=== PATIENT | male | born 1965 | race Caucasian/White ===

== ENCOUNTER 2016-09-07 10:20 | Emergency (ER) | payer OTHER ==
[~2016-09-07] VITALS: Ht 177.8 cm; Wt 104.3 kg
--- NOTE | 2016-09-07 10:28 | ED NECK/BACK PAIN COMPLAINT ---
History of Present Illness General Chief Complaint: Low Back Pain/Injury Stated Complaint: LOWER LEFT AND SIDE BACK PAIN, Source: patient, old records Exam Limitations: no limitations Vital Signs & Intake/Output Vital Signs & Intake/Output Vital Signs Date Time Temp Pulse Resp B/P Pulse O2 O2 Flow FiO2 Ox Delivery Rate 09/07 1200 96.2 59 19 174/106 96 Room Air 09/07 1054 Room Air 09/07 1025 96.4 69 20 159/106 97 Room Air Allergies Coded Allergies: NO KNOWN ALLERGIES (09/07/16) Reconcile Medications Cyclobenzaprine HCl 5 MG TABLET 1 TAB PO TIDPRN PRN PAIN Triage Note: C/O LEFT LOWER BACK PAIN RADIAITNG TO LEFT HIP AND ABDOMEN X 4 DAYS. WORSE WHEN SITTING. DENIES RECENT FALL, OR LIFTING INJURY. DENIES URINARY SXS, NAUSEA OR VOMITING. Triage Nurses Notes Reviewed? yes Onset: Abrupt Duration: day(s): (4), constant Timing: recent history Quality/Severity: moderate, ACHING Location: paraspinous muscles Radiation: LLQ Method of Injury: unknown Loss of Consciousness: no loss of consciousness Modifying Factors: rest Associated Symptoms: DIARRHEA HPI: 51-year-old male with history of hypothyroid hypertension presents emergency room complaining of a four-day history of left lower back pain that radiates to the left lower quadrant. He states his symptoms are worse with rest and changing positions, and denies anyspecific injury or trauma. He denies any heavy lifting or fall. Patient states that he has had loose bowel movements over the past few days as well however denies any black or bloody stools. He denies any urinary symptoms no dysuria urgency frequency hematuria. No scrotal pain or swelling. He denies any fever chills nausea or vomiting. No history of similar episodes in the past. No urinary or bowel incontinence, no numbness or tingling in his legs. He is been using Lidoderm patches without improvement, and he takes methadone daily without improvement. (COLLEEN GOMEZ) Past History Travel History Traveled to [place] past 21 day No Medical History Any Pertinent Medical History? see below for history Cardiovascular: hypertension Gastrointestinal: cirrhosis, hepatitis b/c Endocrine: hypothyroidism Surgical History Surgical History: non-contributory Psychosocial History What is your primary language Lithuanian Family History Hx Contributory? No (COLLEEN GOMEZ) Review of Systems Review of Systems Constitutional: Reports: see HPI. All Other Systems: Reviewed and Negative Comments Review of systems: See HPI, All other systems negative. Constitutional, no chills no fever, no malaise HEENT: no sore throat no congestion Cardiovascular: No chest pain , no palpitation Skin, no rashes, no change in skin Respiratory: No dyspnea no cough no sputum GI: No nausea no vomiting, no diarrhea, : No dysuria No hematuria, no frequency, no discharge Muscle skeletal: No joint pain, no joint swelling, no back pain Neurologic: no headache Psych: No stress ,. Heme/endocrine: No bruising no bleeding Immunology: No lymphadenopathy (COLLEEN GOMEZ) Physical Exam Physical Exam General Appearance: well developed/nourished, no apparent distress, alert, awake Neck: normal inspection, supple, full range of motion Comments: Well-developed well-nourished person in no acute distress HEENT: Normal EENT exam; PERRL, EOMI, HEAD is atraumatic. moist mucous membranes. Neck: Supple, normal range of motion Back: Nontender, no CVA tenderness. Full range of motion Cardiovascular: Regular rate and rhythms no murmurs rub Respiratory: Chest nontender.There were no bony deformities, no asymmetry. No respiratory distress. Patient speaking in full complete sentences. Breath sounds clear to auscultation bilaterally: NO W/R/R Abdomen: Soft, nontender nondistended, no appreciable organomegaly. Normal bowel sounds. No rebound/guarding, No appreciable enlargement of the abdominal aorta, No ascites. Extremity: No edema, full range of motion of extremities, negative straight leg raise bilaterally normal and equal pulses bilaterally, 5 out of 5 strength noted to bilateral upper and lower extremities Neuro: Alert oriented x3, motor sensory normal, There were no obvious focal neurologic abnormalities. Skin: No appreciable rash on exposed skin, skin is warm and dry. Psych: Mood and affect is normal, memory and judgment is normal. (COLLEEN GOMEZ) Progress Differential Diagnosis: cauda equina syn, herniated disc, myofascial strain, pyelo/UTI, sciatica, spinal cord inj, T/L spine injury, ureterolithiasis, diverticulitis, hernia Plan of Care: Orders Procedure Date/time Status URINALYSIS 09/07 1041 Complete LIPASE 09/07 1041 Complete COMPREHENSIVE METABOLIC PANEL 09/07 1041 Complete CBC WITHOUT DIFFERENTIAL 09/07 1041 Complete AMYLASE 09/07 1041 Complete Laboratory Tests 09/07/16 1121: Urinalysis LIGHT H, Urine Color YEL, Urine Clarity CLEAR, Urine pH 6.0, Ur Specific Willcox 1.025, Urine Protein TRACE H, Urine Ketones NEG, Urine Nitrite NEG, Urine Bilirubin NEG, Urine Urobilinogen 0.2, Ur Leukocyte Esterase NEG, Ur Microscopic SEDIMENT EXAMINED, Urine RBC 1-3, Urine WBC RARE, Ur Epithelial Cells FEW, Granular Casts RARE H, Urine Mucus FEW, Urine Hemoglobin TRACE-LYSED H, Urine Glucose NEG 09/07/16 1047: Anion Gap 12, Estimated GFR > 60, BUN/Creatinine Ratio 10.0, Glucose 161 H, Calcium 9.0, Total Bilirubin 0.7, AST 246 H, ALT 190 H, Alkaline Phosphatase 245 H, Total Protein 7.4, Albumin 4.1, Globulin 3.3, Albumin/Globulin Ratio 1.2 , Amylase 39, Lipase 110, CBC w Diff MAN DIFF ORDERED, RBC 4.43 L, MCV 96.7 H, MCH 33.5 H, RDW 13.4, MPV 7.2 L, Gran % 59.0, Lymphocytes % 30.3, Monocytes % 7.1, Eosinophils % 2.0, Basophils % 1.6, Absolute Granulocytes 1.7, Absolute Lymphocytes 0.9 L, Absolute Monocytes 0.2, Absolute Eosinophils 0.1, Absolute Basophils 0, Platelet Estimate DECREASED, Stomatocytes 2+, PUBS MCHC 34.6 Labs ordered old records reviewed CAT scan, Toradol 30 mg IV ordered patient appears in no apparent distress 09/07/2016 11:34:15 AMI discussed with the patient at length all his lab results including his thrombocytopenia and elevated LFTs- however platelets have decreased since 2012 which at the time were 90,000, and lfts has increased since then. Patient is scheduled already to see his GI doctor in [place] on , I discussed with him at length his CT results and incidental findings. Patient is afebrile, discussed with him at length his CAT scan findings the patient has a known history of cirrhosis. Patient feels improved with Toradol. 09/07/2016 12:08:49 PM discussed with patient and his UA results he has an appointment already scheduled with his GI on advised he follow-up with his primary care physician and his doctor that manages his hepatitis this week as well, the patient feels comfortable with his plan is noted to be hypertensive and states he did not take his blood pressure medications this morning. Patient was offered these medications here which she declined stating he wants to go home he is feeling improved with the Toradol. I discussed with him need for close monitoring of his blood pressure at home with a home blood pressure cuff taking his medication as prescribed advised to return anytime sooner if he develops fever chills worsening pain despite medication or any other concerns I answered all their questions they feel comfortable with this plan cleared for discharge (SIERRA GIBSON,COLLEEN) Diagnostic Imaging: Viewed by Me: CT Scan. Discussed w/RAD: CT Scan. Radiology Impression: PATIENT: KIKO MACKAY PRESENT AGE: 51 PATIENT ACCOUNT NO: [id number] : 66 LOCATION: [facility] ORDERING PHYSICIAN: COLLEEN GIBSON SERVICE DATE: 09/07/16 EXAM TYPE: CAT - CT ABD & PELVIS W/O IV CONTRAS EXAMINATION: CT ABDOMEN AND PELVIS WITHOUT CONTRAST CLINICAL INFORMATION: Left lower quadrant and left lower back pain. Diarrhea. Evaluate for kidney stone or diverticulitis. COMPARISON: CT scan of the abdomen and pelvis dated 07/12/2013. TECHNIQUE: Multidetector volumetric imaging was performed from the superior aspect of the liver through the pubic symphysis. Sagittal and coronal reformatted images were obtained on the technologist workstation. DLP: 1110.95 mGy-cm. FINDINGS: LUNG BASES: The visualized lung bases are unremarkable. LIVER, GALLBLADDER, AND BILIARY TREE: The liver is enlarged, measuring 26 cm longitudinally and demonstrates a nodular surface contour, consistent with liver cirrhosis, unchanged from prior exam. Liver parenchyma is diffusely low in attenuation compared to the spleen, consistent with hepatic steatosis. No focal hepatic lesion on noncontrast imaging. No biliary ductal dilatation is present. The gallbladder is unremarkable with no evidence of radiopaque gallstones, gallbladder wall thickening, or obvious pericholecystic inflammatory changes. SPLEEN: Spleen is enlarged, measuring 17.6 cm longitudinally, unchanged. Spleen otherwise unremarkable. PANCREAS AND ADRENAL GLANDS: Unremarkable on noncontrast imaging. KIDNEYS AND URETERS: The kidneys are normal in size, shape, and attenuation. No hydronephrosis, hydroureter, or calculi seen. No perinephric stranding. BLADDER: Unremarkable. GASTROINTESTINAL TRACT: The small and large bowel are unremarkable. The appendix is unremarkable. ABDOMINAL WALL: Again seen is a moderate-sized fat-containing umbilical hernia, unchanged. LYMPH NODES, VASCULAR: There are multiple small subcentimeter sized lymph nodes seen in the periportal, peripancreatic, portacaval, aortocaval and para-aortic spaces. No suspicious abdominal or pelvic adenopathy is seen. Tiny perisplenic varices are noted. Abdominal aorta normal in caliber and unremarkable. PELVIC VISCERA: Unremarkable. OSSEOUS STRUCTURES: Bilateral pars defects are seen at L5 with grade 1 anterolistheses of L5 on S1 and severe associated degenerative disc disease with vacuum disc phenomenon, disc space narrowing and vertebral endplate sclerosis and spurring. Similar findings were seen previously. IMPRESSION: 1. No significant acute abnormality. Specifically, no evidence of nephrolithiasis or obstructive uropathy. No evidence of acute diverticulitis. 2. Prominent hepatosplenomegaly with cirrhotic appearance of liver, and small perisplenic varices and upper abdominal adenopathy, likely reactive. Similar findings were noted previously. 3. 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 DICTATED BY: BINTA FLORES MD DATE/TIME DICTATED:09/07/161101 ART HISTORIAN:ROCAEL DATE/TIME TRANSCRIBED:09/07/161101 CONFIDENTIAL, DO NOT COPY WITHOUT APPROPRIATE AUTHORIZATION. <Electronically signed in Other Vendor System> SIGNED BY: BINTA FLORES MD 09/07/16 1122 (COLLEEN GOMEZ) Departure Departure Time of Disposition: 1156 Disposition: HOME OR SELF CARE Condition: Stable Clinical Impression Primary Impression: Transaminitis Secondary Impressions: Hepatosplenomegaly, Liver cirrhosis, Spondylolysis, Thrombocytopenia Referrals: UNKNOWN Additional Instructions: FOLLOW UP WITH YOUR SCHOOL SPEECH LANGUAGE PATHOLOGIST AND LIVER THIS WEEK SCHEDULED. CONTINUE USING YOUR LIDODERM PATCHES, IBUPROFEN 800MG EVERY 8 HOURS. Departure Forms: Customer Survey General Discharge Information Prescriptions: Current Visit Scripts Cyclobenzaprine HCl 1 TAB PO TIDPRN PRN PAIN #12 TAB (COLLEEN GOMEZ) PA/EARTH BURNER Co-Sign Statement Statement: ED Attending supervision documentation- [] I saw and evaluated the patient. I have also reviewed all the pertinent lab results and diagnostic results. I agree with the findings and the plan of care as documented in the PA's/EARTH BURNER's documentation. [X] I have reviewed the ED Record and agree with the PA's/EARTH BURNER's documentation. [] Additions or exceptions (if any) to the PAs/EARTH BURNER's note and plan are summarized below: [] (KELSIE WANG,DAVID Dorsey)
[2016-09-07 11:06] LABS: ABSOLUTE BASOPHIL COUNT 0 /CUMM (0.0-0.2); ABSOLUTE EOSINOPHIL COUNT 0.1 /CUMM (0.0-0.7); ABSOLUTE GRANULOCYTE CT 1.7 /CUMM (1.4-6.5); ABSOLUTE LYMPH COUNT 0.9 /CUMM (1.2-3.4); ABSOLUTE MONOCYTE COUNT 0.2 /CUMM (0.10-0.60); BASOPHIL % 1.6 % (0.0-2.0); HEMATOCRIT 42.8 % (42-52); MEAN CORPUSCULAR HGB 33.5 PG (27.0-31.0); MEAN CORPUSCULAR HGB CONC 34.6 G/DL (33.0-37.0); MEAN CORPUSCULAR VOLUME 96.7 FL (80.0-94.0); MEAN PLATELET VOLUME 7.2 FL (7.4-10.4); PLATELET COUNT 78 /CUMM (130-400); RBC DISTRIBUTION WIDTH 13.4 % (11.5-14.5); RED BLOOD CELL CT 4.43 /CUMM (4.70-6.10); WHITE BLOOD CELL COUNT 2.9 /CUMM (4.8-10.8)
--- NOTE | 2016-09-07 11:22 | CT SCAN REPORT ---
EXAMINATION: CT ABDOMEN AND PELVIS WITHOUT CONTRAST CLINICAL INFORMATION: Left lower quadrant and left lower back pain. Diarrhea. Evaluate for kidney stone or diverticulitis. COMPARISON: CT scan of the abdomen and pelvis dated 07/12/2013. TECHNIQUE: Multidetector volumetric imaging was performed from the superior aspect of the liver through the pubic symphysis. Sagittal and coronal reformatted images were obtained on the technologist workstation. DLP: 1110.95 mGy-cm. FINDINGS: LUNG BASES: The visualized lung bases are unremarkable. LIVER, GALLBLADDER, AND BILIARY TREE: The liver is enlarged, measuring 26 cm longitudinally and demonstrates a nodular surface contour, consistent with liver cirrhosis, unchanged from prior exam. Liver parenchyma is diffusely low in attenuation compared to the spleen, consistent with hepatic steatosis. No focal hepatic lesion on noncontrast imaging. No biliary ductal dilatation is present. The gallbladder is unremarkable with no evidence of radiopaque gallstones, gallbladder wall thickening, or obvious pericholecystic inflammatory changes. SPLEEN: Spleen is enlarged, measuring 17.6 cm longitudinally, unchanged. Spleen otherwise unremarkable. PANCREAS AND ADRENAL GLANDS: Unremarkable on noncontrast imaging. KIDNEYS AND URETERS: The kidneys are normal in size, shape, and attenuation. No hydronephrosis, hydroureter, or calculi seen. No perinephric stranding. BLADDER: Unremarkable. GASTROINTESTINAL TRACT: The small and large bowel are unremarkable. The appendix is unremarkable. ABDOMINAL WALL: Again seen is a moderate-sized fat-containing umbilical hernia, unchanged. LYMPH NODES, VASCULAR: There are multiple small subcentimeter sized lymph nodes seen in the periportal, peripancreatic, portacaval, aortocaval and para-aortic spaces. No suspicious abdominal or pelvic adenopathy is seen. Tiny perisplenic varices are noted. Abdominal aorta normal in caliber and unremarkable. PELVIC VISCERA: Unremarkable. OSSEOUS STRUCTURES: Bilateral pars defects are seen at L5 with grade 1 anterolistheses of L5 on S1 and severe associated degenerative disc disease with vacuum disc phenomenon, disc space narrowing and vertebral endplate sclerosis and spurring. Similar findings were seen previously. IMPRESSION: 1. No significant acute abnormality. Specifically, no evidence of nephrolithiasis or obstructive uropathy. No evidence of acute diverticulitis. 2. Prominent hepatosplenomegaly with cirrhotic appearance of liver, and small perisplenic varices and upper abdominal adenopathy, likely reactive. Similar findings were noted previously. 3. 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
[2016-09-07 12:00] VITALS: BP 174/106
[2016-09-07] MEDS ORDERED: CYCLOBENZAPRINE5 M2 PO (12:06)
== END 2016-09-07 12:11 ==
LOC: ERH 10:20
PROVIDERS: Physician Assistant Medical
DX: R74.0 Nonspecific elevation of levels of transaminase and lactic acid dehydrogenase [LDH] (principal); R16.2 Hepatomegaly with splenomegaly, not elsewhere classified; K74.60 Unspecified cirrhosis of liver; M43.06 Spondylolysis, lumbar region; D69.6 Thrombocytopenia, unspecified
CPT/HCPCS: 74176; 81001; 96374; J1885